=== PATIENT | male | born 2000 | race Caucasian/White ===

== ENCOUNTER 2024-05-01 11:47 | Day surgery (SDC) | payer OTHER ==
[~2024-05-01] VITALS: Ht 180.3 cm; Wt 82.6 kg
[~2024-05-01 11:47] MED LIST: AMPH1CAP16 PO
[2024-05-01] MEDS ORDERED: LR 1,000 ML IV SCH ×2 (11:55→15:20)
[2024-05-01] MEDS ORDERED: LIDOCAINE 1% SDV 5ML VIAL SC PRN (11:55)
[2024-05-01] MEDS ORDERED: LIDOCAINE 2% 100MG/5ML SDV (FOR ANES.) As Ordered ONE (12:58)
[2024-05-01] MEDS ORDERED: propofoL 200 MG/20 ML VIAL As Ordered ONE (12:59)
[2024-05-01] MEDS ORDERED: ROCURONIUM BROMIDE 50MG/5ML VIAL As Ordered ONE (12:59)
[2024-05-01] MEDS ORDERED: MIDAZOLAM INJ 2MG/2ML VIAL As Ordered ONE (13:03)
[2024-05-01] MEDS ORDERED: ONDANSETRON 4MG 2ML VIAL As Ordered ONE (13:03)
[2024-05-01] MEDS ORDERED: fentaNYL 100 MCG/2 ML INJECTION As Ordered ONE (13:05)
[2024-05-01] MEDS ORDERED: ACETAMINOPHEN 1000MG 100ML IV BAG As Ordered ONE (14:25)
[2024-05-01] MEDS: METHYLENE BLUE 0.5% (5MG/ML) 10 ML AMP (PROVAYBLUE) As Ordered ONE (14:25)
[2024-05-01] MEDS: EPINEPHrine 1MG/ML INJ 30ML MD-VIAL As Ordered ONE (14:25)
[2024-05-01] MEDS ORDERED: LACRILUBE (AKWA TEARS) OPHTH OINT 3.5GM As Ordered ONE (14:26)
[2024-05-01] MEDS ORDERED: PHENYLephrine 500MCG 5ML (100MCG/ML) SYRINGE As Ordered ONE (14:33)
[2024-05-01] MEDS ORDERED: ePHEDrine SULFATE 25 MG/5 ML(5MG/ML) SYRINGE As Ordered ONE (14:33)
[2024-05-01] MEDS ORDERED: SUGAMMADEX SODIUM 500 MG/5 ML VIAL (BRIDION) As Ordered ONE (14:54)
[2024-05-01] MEDS: SODIUM CHLORIDE 0.9% NASAL GEL 15GM (AYR) As Ordered ONE (15:11)
[2024-05-01] MEDS: LIDOCAINE W/EPINEPHRINE 1% 20ML VIAL As Ordered ONE (15:11)
[2024-05-01] MEDS ORDERED: fentaNYL 100 MCG/2 ML INJECTION IV PRN (15:20)
[2024-05-01] MEDS: oxyCODONE 5MG TAB PO PRN (15:48)
[2024-05-01] MEDS: ONDANSETRON 4MG 2ML VIAL IV PRN (15:49)
[2024-05-01] MEDS: HYDROMORPHONE HCL 0.5 MG/ 0.5 ML SYRINGE IV PRN (16:12)
[2024-05-01] MEDS: AUGMENTIN 875 MG TAB PO ONE (17:00)
[2024-05-01 17:40] VITALS: BP 130/68; TEMP 97.9; O2SAT 96
== END 2024-05-01 17:50 | disposition home or self-care (01) ==
LOC: M SDC 11:47
PROVIDERS: ATTEND Otolaryngology
DX: J34.2 Deviated nasal septum (principal); J31.0 Chronic rhinitis; F90.9 Attention-deficit hyperactivity disorder, unspecified type; Z79.899 Other long term (current) drug therapy
CPT/HCPCS: 30520; 88300; J0131; J0171; J1100; J1170; J2250; J2371; J2405; J3010; Q9968